=== PATIENT | male | born 1960 ===

== ENCOUNTER 2021-07-12 19:42 | Emergency (ER) | payer OTHER ==
[~2021-07-12] VITALS: Ht 149.9 cm; Wt 49.9 kg
[2021-07-12 22:35] VITALS: BP 141/80; TEMP 98.3
== END 2021-07-12 22:25 | disposition home or self-care (01) ==
LOC: ED 19:42
PROC: 0HQLXZZ Repair Left Lower Leg Skin, External Approach (ICD-10-PCS; principal; 2021-07-12)
DX: S81.812A Laceration without foreign body, left lower leg, initial encounter (principal); W29.3XXA Contact with powered garden and outdoor hand tools and machinery, initial encounter; Y93.89 Activity, other specified; Y92.89 Other specified places as the place of occurrence of the external cause; Z23 Encounter for immunization
CPT/HCPCS: 90471; 90715; 99283; J2001; J2060; J7040

== ENCOUNTER 2021-07-22 18:53 | Emergency (ER) | payer OTHER ==
[~2021-07-22] VITALS: Ht 154.9 cm; Wt 54.0 kg
[2021-07-22 18:58] VITALS: BP 151/71; TEMP 98
== END 2021-07-22 20:20 | disposition home or self-care (01) ==
LOC: ED 18:53
DX: S81.812D Laceration without foreign body, left lower leg, subsequent encounter (principal); Z48.02 Encounter for removal of sutures; X58.XXXD Exposure to other specified factors, subsequent encounter; Y92.89 Other specified places as the place of occurrence of the external cause